=== PATIENT | female | born 2005 | race Caucasian/White ===

== ENCOUNTER → 2025-06-17 | Day surgery (SDC) | payer BC ==
[~2025-06-17] MED LIST: Gadobenate Dimeglumine 2 ML, Sodium Chloride 0.9% 250 ML 10 ML, Iopamidol 8 ML, Lidocai... IV SCH; Sodium Bicarbonate 2.5 MEQ/5 ML SDV ONE
== END ==
LOC: CT 07:50
PROVIDERS: ATTEND Student in an Organized Health Care Education/Training Program
PROC: BQ01YZZ Plain Radiography of Left Hip using Other Contrast (ICD-10-PCS; principal; 2025-06-17)
DX: M25.552 Pain in left hip (principal); M25.551 Pain in right hip
CPT/HCPCS: 27093; 77002; A9577; J0166; J7050; Q9967